=== PATIENT | female | born 1970 | race Caucasian/White ===

== ENCOUNTER 2016-11-04 21:37 | Emergency (ER) | payer OTHER ==
[~2016-11-04] VITALS: Ht 160 cm; Wt 165.9 kg
[2016-11-05 00:08] LABS: MCH 30.1 PG (29.0-34.0); MCV 94.1 FL (83-99); MEAN PLAT.VOLUME 11.1 uM^3 (9.5-12.4); PLATELET COUNT 261 K/uL (156-360); RBC DIS.WIDTH-CV 14.4 % (11.8-14.6); RBC DIS.WIDTH-SD 49.9 % (39-53); RED BLOOD COUNT 4.78 M/uL (3.80-5.20); WHITE BLOOD COUNT 10.7 K/uL (4.1-10.2)
[2016-11-05 00:27] LABS: CHLORIDE 94 mEq/L (99-109); POTASSIUM 4.6 mEq/L (3.7-5.4); SODIUM 137 mEq/L (136-147)
[2016-11-05 00:29] LABS: GLUCOSE 266 mg/dL (70-99)
[2016-11-05 00:31] LABS: ANION GAP 9 MEQ/L (2-14); TOTAL BILIRUBIN 0.2 mg/dL (0.0-1.0)
[2016-11-05 00:33] LABS: ALKALINE PHOSPHATASE 140 IU/L (3-129)
[2016-11-05 00:34] LABS: UREA NITROGEN (BUN) 20 mg/dL (9-23)
[2016-11-05 00:36] LABS: LIPASE 34 U/L (1.0-51.0)
[2016-11-05 00:44] LABS: GFR ESTIMATE (CALCULATED) 47 mL/min/
[2016-11-05 01:31] LABS: POINT-OF-CARE METER ID UU13113702; POINT-OF-CARE USER ID 611181311
[2016-11-05 02:08] LABS: TROP-I INTERPRETATION NEGATIVE; TROPONIN-I < 0.01 ng/mL (0.0-0.30)
[2016-11-05 03:58] LABS: TROP-I INTERPRETATION NEGATIVE; TROPONIN-I < 0.01 ng/mL (0.0-0.30)
[2016-11-05] MEDS ORDERED: ZITHROMAX250 MG PO (05:22)
[2016-11-05 05:46] VITALS: BP 117/76
== END 2016-11-05 05:47 | disposition home or self-care (01) ==
LOC: EME 21:37
PROVIDERS: Emergency Medicine
DX: R07.9 Chest pain, unspecified (principal); R60.9 Edema, unspecified; R06.02 Shortness of breath; E78.5 Hyperlipidemia, unspecified; I10 Essential (primary) hypertension; Z82.49 Family history of ischemic heart disease and other diseases of the circulatory system
CPT/HCPCS: 71010; 80053; 83690; 83880; 84484; 85027; 93005; 93970; 99281; 99284